=== PATIENT | male | born 1990 | race Caucasian/White ===

== ENCOUNTER → 2018-02-15 | Outpatient (REF) ==
[~2018-02-15] MED LIST: A & D OINT TUBE60 GM TP; ASTELIN NASAL S34 ML; DDAVP TAB0.2 MG PO; DEPAKOTE500 MG PO; FLONASE NASAL S16 GM NS; KENALOG DENTAL P5 GM DT; LAMISIL1% TOP; RISPERDAL 1M1 MG/TAB PO; SLEEPING PILL; SYNTHROID0.088 MG/T PO; VITAMIN D 50,1.25 MG PO
[2018-02-15 16:23] LABS: VALPROIC ACID (DEPAKENE) 40.9 ug/mL (50.0-100.0)
[2018-02-15 16:49] LABS: THYROID STIMULATING HORMONE 0.722 uIU/mL (0.465-4.680)
== END ==
LOC: ZLAB.WCH 15:55
PROVIDERS: Internal Medicine
DX: Z01.89 Encounter for other specified special examinations (principal)

== ENCOUNTER → 2021-05-23 | Outpatient (REF) | LOC: ZLAB.WCH 18:45 | DX: Z01.89 Encounter for other specified special examinations (principal) ==